=== PATIENT | male | born 1965 | race Caucasian/White ===

== ENCOUNTER 2019-12-27 11:01 | Emergency (ER) | payer BC ==
[~2019-12-27] VITALS: Ht 177.8 cm; Wt 90.0 kg
[2019-12-27] MEDS: diazePAM 5 MG TABLET PO STA (11:26)
--- NOTE | 2019-12-27 11:36 | PHYS DOC ---
Adult General Chief Complaint Chief Complaint: DIZZY/LIGHT HEADED [facility] HPI Patient is a 54 year old male who presents with dizziness, blurred vision, diaphoresis when he woke up at 3 AM this morning to get a drink. The patient states that he started having blurred vision bilaterally. He states that he went then went back to sleep and woke up at 5 AM and had similar symptoms. He states that then he woke up again after going back to sleep and had symptoms 1 more time. The patient states he took some meclizine which did help. And he states that the symptoms come when he tilts his head. Denies any medical histor y. Seen at urgent care prior to arrival and was sent to the ER for additional work-up. Denies any additional symptoms. Complete ROS were reviewed and found to be within normal limits, except as doc umented in the HPI (DOMINIC SHEPHERD APRN) Current Medications Current Medications Current Medications Medications (Trade) Dose Ordered Sig/Virgen Start Time Stop Time Status Last Admin Dose Admin Diazepam (Valium) 5 mg 1X STAT 12/27/19 11:26 12/27/19 11:40 DC 12/27/19 11:26 5 MG Meclizine HCl (Antivert) 25 mg 1X STAT 12/27/19 12:23 12/27/19 12:24 DC 12/27/19 12:33 25 MG (KELLY MARIO DO) Allergies Allergies Allergies Coded Allergies Type Severity Reaction Last Updated Verified Penicillins Allergy Intermediate 12/27/19 Yes (FABIANOKELLY E DO) Physical Exam Physical Exam Constitutional: Well developed, well nourished, no acute distress, non-toxic appearance. [] HENT: Normocephalic, atraumatic, bilateral external ears normal, oropharynx moist, no oral exudates, nose normal. [] Eyes: Patient is having nystagmus when his head is turned. Neurologic: Alert and oriented X 3, normal motor function, normal sensory function, no focal deficits noted. Patient has positive Romberg test when he is stood up and has his arms crossed in his eyes closed. Patient also has a positive tilt test. Psychologic: Affect normal, judgement normal, mood normal. [] (DOMINIC SHEPHERD APRN) Current Patient Data Vital Signs Vital Signs Date Time Temp Pulse Resp B/P (MAP) Pulse Ox O2 Delivery O2 Flow Rate FiO2 12/27/19 12:45 70 18 96 12/27/19 11:08 98.0 135/87 (103) Room Air 98.0 ([facility]) Lab Values Laboratory Tests Test 12/27/19 11:20 White Blood Count 4.0 x10^3/uL (4.0-11.0) Red Blood Count 5.18 x10^6/uL (4.30-5.70) Hemoglobin 14.6 g/dL (13.0-17.5) Hematocrit 45.1 % (39.0-53.0) Mean Corpuscular Volume 87 fL (79-100) Mean Corpuscular Hemoglobin 28 pg (25-35) Mean Corpuscular Hemoglobin Concent 32 g/dL (31-37) Red Cell Distribution Width 13.2 % (11.5-14.5) Platelet Count 209 x10^3/uL (140-400) Neutrophils (%) (Auto) 47 % (31-73) Lymphocytes (%) (Auto) 38 % (24-48) Monocytes (%) (Auto) 11 % (0-9) H Eosinophils (%) (Auto) 2 % (0-3) Basophils (%) (Auto) 1 % (0-3) Neutrophils # (Auto) 1.9 x10^3/uL (1.8-7.7) Lymphocytes # (Auto) 1.5 x10^3/uL (1.0-4.8) Monocytes # (Auto) 0.4 x10^3/uL (0.0-1.1) Eosinophils # (Auto) 0.1 x10^3/uL (0.0-0.7) Basophils # (Auto) 0.0 x10^3/uL (0.0-0.2) Sodium Level 142 mmol/L (136-145) Potassium Level 4.0 mmol/L (3.5-5.1) Chloride Level 106 mmol/L (98-107) Carbon Dioxide Level 29 mmol/L (21-32) Anion Gap 7 (6-14) Blood Urea Nitrogen 14 mg/dL (8-26) Creatinine 1.1 mg/dL (0.7-1.3) Estimated GFR (Cockcroft-Gault) 70.3 BUN/Creatinine Ratio 13 (6-20) Glucose Level 104 mg/dL (70-99) H Calcium Level 8.9 mg/dL (8.5-10.1) Total Bilirubin 0.5 mg/dL (0.2-1.0) Aspartate Amino Transferase (AST) 27 U/L (15-37) Alanine Aminotransferase (ALT) 33 U/L (16-63) Alkaline Phosphatase 65 U/L (46-116) Troponin I Quantitative < 0.017 ng/mL (0.000-0.055) Total Protein 6.8 g/dL (6.4-8.2) Albumin 4.1 g/dL (3.4-5.0) Albumin/Globulin Ratio 1.5 (1.0-1.7) Laboratory Tests 12/27/19 11:20 Laboratory Tests 12/27/19 11:20 ([facility]) Lab Values Laboratory Tests Test 12/27/19 11:20 White Blood Count 4.0 x10^3/uL (4.0-11.0) Red Blood Count 5.18 x10^6/uL (4.30-5.70) Hemoglobin 14.6 g/dL (13.0-17.5) Hematocrit 45.1 % (39.0-53.0) Mean Corpuscular Volume 87 fL (79-100) Mean Corpuscular Hemoglobin 28 pg (25-35) Mean Corpuscular Hemoglobin Concent 32 g/dL (31-37) Red Cell Distribution Width 13.2 % (11.5-14.5) Platelet Count 209 x10^3/uL (140-400) Neutrophils (%) (Auto) 47 % (31-73) Lymphocytes (%) (Auto) 38 % (24-48) Monocytes (%) (Auto) 11 % (0-9) H Eosinophils (%) (Auto) 2 % (0-3) Basophils (%) (Auto) 1 % (0-3) Neutrophils # (Auto) 1.9 x10^3/uL (1.8-7.7) Lymphocytes # (Auto) 1.5 x10^3/uL (1.0-4.8) Monocytes # (Auto) 0.4 x10^3/uL (0.0-1.1) Eosinophils # (Auto) 0.1 x10^3/uL (0.0-0.7) Basophils # (Auto) 0.0 x10^3/uL (0.0-0.2) Sodium Level 142 mmol/L (136-145) Potassium Level 4.0 mmol/L (3.5-5.1) Chloride Level 106 mmol/L (98-107) Carbon Dioxide Level 29 mmol/L (21-32) Anion Gap 7 (6-14) Blood Urea Nitrogen 14 mg/dL (8-26) Creatinine 1.1 mg/dL (0.7-1.3) Estimated GFR (Cockcroft-Gault) 70.3 BUN/Creatinine Ratio 13 (6-20) Glucose Level 104 mg/dL (70-99) H Calcium Level 8.9 mg/dL (8.5-10.1) Total Bilirubin 0.5 mg/dL (0.2-1.0) Aspartate Amino Transferase (AST) 27 U/L (15-37) Alanine Aminotransferase (ALT) 33 U/L (16-63) Alkaline Phosphatase 65 U/L (46-116) Troponin I Quantitative < 0.017 ng/mL (0.000-0.055) Total Protein 6.8 g/dL (6.4-8.2) Albumin 4.1 g/dL (3.4-5.0) Albumin/Globulin Ratio 1.5 (1.0-1.7) Laboratory Tests 12/27/19 11:20 Laboratory Tests 12/27/19 11:20 (DOMINIC SHEPHERD APRN) EKG EKG EKG interpreted by Dr. Tamayo Sinus rhythm with rate of 60.[] (DOMINIC SHEPHERD APRN) Radiology/Procedures Radiology/Procedures [][facility] [address] [place] [address] IMAGING REPORT Signed PATIENT: BRIDGETTE FALCON ACCOUNT: [id number] : 1965 LOCATION: ER AGE: 54 SEX: M EXAM STATUS: REG ER ORD. PHYSICIAN: DOMINIC SHEPHERD APRN REASON: dizziness PROCEDURE: CT HEAD WO CONTRAST CT HEAD INDICATION: Dizziness COMPARISON: None Available. Exposure: One or more of the following individualized dose reduction techniques were utilized for this examination: 1. Automated exposure control 2. Adjustment of the mA and/or kV according to patient size 3. Use of iterative reconstruction technique TECHNIQUE: 5 mm contiguous axial images were obtained from the skull base to the vertex in both bone and soft tissue algorithm. FINDINGS: No abnormal attenuation within the brain parenchyma. No evidence of acute intracranial hemorrhage. No extra-axial fluid collections. No mass effect or midline shift. Ventricular size is appropriate. Basal cisterns are patent. No fractures identified.Nolasco-white differentiation is preserved.Globes and orbits are within normal limits. Paranasal sinuses and mastoid air cells are clear. IMPRESSION: No acute intracranial findings. Electronically signed by: John Yates MD (12/27/2019 12:21 PM) [id number] DICTATED and SIGNED BY: JOHN YATES MD DATE: 12/27/19 1221 (DOMINIC SHEPHERD APRN) Course & Med Decision Making Course & Med Decision Making Pertinent Labs and Imaging studies reviewed. (See chart for details) Symptoms are likely due to vertigo. Will get a CT of the head, and will get labs and EKG to rule out other causes. During assessment incited symptoms of the vertigo by doing tilt test and Romberg test. Will give Valium to the patient to help symptoms Labs and imaging are unremarkable. Left patient follow-up with ENT and will prescribe meclizine for home. (DOMINIC SHEPHERD APRN) Dragon Disclaimer Dragon Disclaimer This electronic medical record was generated, in whole or in part, using a voice recognition dictation system. (DOMINIC SHEPHERD APRN) Attending Signature I have participated in the care of this patient and I have reviewed and agree with all pertinent clinical information above including history, exam, and recommendations. (KELLY MARIO DO) Departure Departure Impression: Primary Impression: Benign positional vertigo Disposition: HOME, SELF-CARE Condition: STABLE Referrals: NO PCP (PCP) SABINE DOHERTY MD Patient Instructions: Benign Positional Vertigo Additional Instructions: Thank you for visiting [facility]. We appreciate you trusting us with your care. If any additional problems come up don't hesitate to return to visit us. Please follow up with your primary care provider so they can plan additional care if needed and know about the problem that you had. If symptoms worsen come back to the Emergency Department. Any concerning symptoms that start such as chest pain, shortness of air, weakness or numbness on one side of the body, running high fevers or any other concerning symptoms return to the ER. Please take meclizine per label instructions help symptoms. Please follow-up with an ENT. Scripts Meclizine Hcl (MECLIZINE HCL) 25 Mg Tablet 1 TAB PO PRN TID PRN for DIZZINESS, #30 TAB Prov: DOMINIC SHEPHERD APRN 12/27/19 Problem Qualifiers Primary Impression: Benign positional vertigo Laterality: bilateral Qualified Codes: H81.13 - Benign paroxysmal vertigo, bilateral DOMINIC SHEPHERD APRN Dec 27, 2019 11:36 KELLY MARIO DO Dec 27, 2019 17:36
[2019-12-27 11:57] LABS: BASO % 1 % (0-3); EOS # 0.1 x10^3/uL (0.0-0.7); EOS % 2 % (0-3); HEMATOCRIT 45.1 % (39.0-53.0); HEMOGLOBIN 14.6 g/dL (13.0-17.5); LYMPH # 1.5 x10^3/uL (1.0-4.8); LYMPH % 38 % (24-48); MEAN CORPUSCULAR HEMOGLOBIN 28 pg (25-35); MEAN CORPUSCULAR HGB CONC 32 g/dL (31-37); MEAN CORPUSCULAR VOLUME 87 fL (79-100); MONO # 0.4 x10^3/uL (0.0-1.1); MONO % 11 % (0-9); NEUT # 1.9 x10^3/uL (1.8-7.7); NEUT % 47 % (31-73); PLATELET COUNT 209 x10^3/uL (140-400); RED BLOOD COUNT 5.18 x10^6/uL (4.30-5.70); RED CELL DISTRIBUTION WIDTH 13.2 % (11.5-14.5)
[2019-12-27 12:01] LABS: CALCIUM 8.9 mg/dL (8.5-10.1); CREATININE 1.1 mg/dL (0.7-1.3); GFR 70.3
[2019-12-27 12:06] LABS: ALBUMIN 4.1 g/dL (3.4-5.0); ALBUMIN/GLOBULIN RATIO 1.5 (1.0-1.7); TOTAL BILIRUBIN 0.5 mg/dL (0.2-1.0); TOTAL PROTEIN 6.8 g/dL (6.4-8.2)
--- NOTE | 2019-12-27 12:24 | RAD ---
CT HEAD INDICATION: Dizziness COMPARISON: None Available. Exposure: One or more of the following individualized dose reduction techniques were utilized for this examination: 1. Automated exposure control 2. Adjustment of the mA and/or kV according to patient size 3. Use of iterative reconstruction technique TECHNIQUE: 5 mm contiguous axial images were obtained from the skull base to the vertex in both bone and soft tissue algorithm. FINDINGS: No abnormal attenuation within the brain parenchyma. No evidence of acute intracranial hemorrhage. No extra-axial fluid collections. No mass effect or midline shift. Ventricular size is appropriate. Basal cisterns are patent. No fractures identified.Nolasco-white differentiation is preserved.Globes and orbits are within normal limits. Paranasal sinuses and mastoid air cells are clear. IMPRESSION: No acute intracranial findings. Electronically signed by: John Yates MD (12/27/2019 12:21 PM) [id number]
[2019-12-27] MEDS ORDERED: MECL-75 PO (12:27)
[2019-12-27] MEDS: MECLIZINE HCL 12.5 MG TABLET. PO STA (12:33)
[2019-12-27 12:45] VITALS: BP 124/80
--- NOTE | 2019-12-28 05:24 | EKG ---
[facility] [address] [place] [address] Test Date: 2019-12-27 Test Time: 11:15:30 Pat Name: BRIDGETTE FALCON Department: Room: Gender: M Sanitation Director: : 1965 Requested By: DOMINIC SHEPHERD Order Number: [id number] Reading MD: Measurements Intervals [place] Rate: 60 P: 52 IL: 154 QRS: 51 QRSD: 96 T: 54 QT: 394 QTc: 398 Interpretive Statements SINUS RHYTHM NO SPECIFIC ECG ABNORMALITIES RI6.01 No previous ECG available for comparison
== END 2019-12-27 13:00 | disposition home or self-care (01) ==
LOC: ER 11:01
DX: H81.13 Benign paroxysmal vertigo, bilateral (principal); R42 Dizziness and giddiness; H53.8 Other visual disturbances; R61 Generalized hyperhidrosis; Z88.0 Allergy status to penicillin
CPT/HCPCS: 36415; 70450; 80053; 84484; 85025; 93005; 99285; J8597

== ENCOUNTER → 2020-08-18 | Outpatient (CLI) | payer BC ==
[~2020-08-18] MED LIST: MECL-75 PO
--- NOTE | 2020-08-18 15:33 | KCIC ---
CHEST PA LATERAL Technique: PA and lateral views of the chest were obtained. Clinical History: Reason: Sternal chest pain, hx Covid in March. / Spl. Instructions: / History: Comparison: None. Findings: The heart and pulmonary vasculature appear within normal limits. Linear opacities in the lung bases are likely discoid atelectasis. The pleural margins are clear. Impression: No acute chest process is seen. Electronically signed by: Aditya Galvez III, MD (08/18/2020 3:30 PM) [facility]
== END ==
LOC: KCIC 10:32
PROVIDERS: ATTEND Family Medicine
DX: R07.89 Other chest pain (principal)
CPT/HCPCS: 71046

== ENCOUNTER → 2020-11-24 | Outpatient (CLI) | payer BC ==
--- NOTE | 2020-11-24 10:10 | CARD ---
MR#: [id number] Date of Study: 11/24/2020 Ordering Physician: GAVIN CONTRERAS, Referring Physician: GAVIN CONTRERAS, Tech: Shari Huber [facility] APPROVED REPORT EXAM: Two-dimensional and M-mode echocardiogram with Doppler and color Doppler. Other Information Quality : Good INDICATION Chest Pain 2D DIMENSIONS RVDd3.0 (2.9-3.5cm)Left Atrium(2D)3.1 (1.6-4.0cm) IVSd0.9 (0.7-1.1cm)Aortic Root(2D)2.9 (2.0-3.7cm) LVDd5.0 (3.9-5.9cm)LVOT Diameter2.2 (1.8-2.4cm) PWd0.8 (0.7-1.1cm)LVDs3.6 (2.5-4.0cm) FS (%) 28.4 %SV65.9 ml LVEF(%)54.6 (>50%) Aortic Valve AoV Peak Caesar.114.3cm/sAoV VTI21.1cm AO Peak GR.5.2mmHgLVOT Peak Caesar.109.8cm/s AO Mean GR.3mmHgAVA (VMAX)3.70cm2 QUIQEU (VTI)4.10cm2 Mitral Valve MV E Imtywnid67.0cm/sMV DECEL OHLT604ei MV A Pwwechqx70.2cm/sE/A Ratio1.2 Tricuspid Valve TR P. Kovlpxfj687fu/sRAP LCONZUYZ3xhPd TR Peak Gr.66dqSiMTHF83hbMt Pulmonary Vein S1 Zrbxbmeg99.4cm/sD2 Pjddmjac56.1cm/s LEFT VENTRICLE The left ventricle is normal size. There is normal left ventricular wall thickness. The left ventricu lar systolic function is normal. The Ejection Fraction is 55-60%. There is normal LV segmental wall m otion. The left ventricular diastolic function and filling is normal for age. RIGHT VENTRICLE The right ventricle is normal size. The right ventricular systolic function is normal. ATRIA The left atrium size is normal. The right atrium size is normal. The interatrial septum is intact wit h no evidence for an atrial septal defect or patent foramen ovale as noted on 2-D or Doppler imaging. AORTIC VALVE The aortic valve is normal in structure and function. Doppler and Color Flow revealed no significant aortic regurgitation. There is no significant aortic valvular stenosis. MITRAL VALVE The mitral valve is normal in structure and function. There is no evidence of mitral valve prolapse. There is no mitral valve stenosis. Doppler and Color Flow revealed no mitral valve regurgitation note d. TRICUSPID VALVE The tricuspid valve is normal in structure and function. Doppler and Color Flow revealed trace tricus pid regurgitation. The PA pressure was estimated at 24 mmHg. There is no tricuspid valve stenosis. PULMONIC VALVE The pulmonary valve is normal in structure and function. Doppler and Color Flow revealed trace pulmon ic valvular regurgitation. There is no pulmonic valvular stenosis. GREAT VESSELS The aortic root is normal in size. The ascending aorta is not well seen. The IVC is normal in size an d collapses >50% with inspiration. PERICARDIAL EFFUSION There is no evidence of significant pericardial effusion. Critical Notification Critical Value: No <Conclusion> The left ventricular systolic function is normal. The Ejection Fraction is 55-60%. There is normal LV segmental wall motion. Trace tricuspid regurgitation. The PA pressure was estimated at 24 mmHg. There is no evidence of significant pericardial effusion. Signed by : Mehdi Rivera, Electronically Approved : 11/24/2020 10:10:19
--- NOTE | 2020-11-24 13:37 | RAD ---
MR#: [id number] Date of Study: 11/24/2020 Ordering Physician: GAVIN CONTRERAS, Referring Physician: ROSA MARIA LOPEZ Tech: PATRICK Goff, ARRT (R) (N) APPROVED REPORT Test Type: Exercise Stress Nurse/Tech: Elizabeth Gallardo RN Test Indications: chest pain post COVID March 2021 Cardiac History: No known cardiac Medications: See Electronic Medical Record Medical History: See Electronic Medical Record Resting ECG: SR Resting Heart Rate: 70 bpm Resting Blood Pressure: 121/68mmHg Pretest Chest Pain: None Nurse/Tech Notes lungs CTA, S1S2 Consent: The procedure was explained to the patient in lay terms. Informed consent was witnessed. Chucho eout was entered into [employer]. History and Stress Test performed by MEHRDAD [place] Stress Symptoms Dyspnea POST EXERCISE Reason for Termination: Reached target heart rate Target HR: 141 Max HR: 157 bpm 111% of Maximum Predicted HR: 141 bpm Exercise duration: 10:20 min:sec, 4 Stage Exercise capacity: 13.4METs Max Blood Pressure: 147/73mmHg Blood Pressure response to exercise: Normal blood pressure response during stress. Heart Rate response to exercise: normal response Chest Pain: No. Arrhythmia: No. ST Change: No. INTERPRETATION Stress EKG Conclusion: Baseline EKG showed sinus rhythm. No ischemic changes at peak stress. No arr hythmias. Imaging Protocol IMAGE PROTOCOL: Rest Tc-99m/stress Tc-99m 1 day Rest: Stress: Viability: Radiopharm.Tc99m NlutifdtkGb04g Sestamibi Zzhp89vZh 33mCi Duration 15min. 13min. Img Date 11/24/2020 11/24/2020 Inj-Img Wuoh79qlz. 60min. Post-Injection Exercise: 1 minute Rest Admin Site:IV - Right AntecubitalAdministrator:PATRICK Goff, ARRT (R)(N) Stress Admin Site: IV - Right AntecubitalAdministrator: RT Misti (R)(N) STRESS DATA End Diast. Vol.81.0mlLVEDV index BSA41.0ml End Syst. Vol.17.0mlLVESV index BSA9.0ml Myocardial Xlok198.0gEject. Zkdzcpmt80.0% Stress Scores Regional WT3.00Summed WT10.00 Regional WM0.00Summed WM0.00 Study quality was good. Left Ventricular size was Normal at Rest and Stress. Lung uptake was . Left Ventricular ejection fraction is 76%. The rest and stress images show normal perfusion, normal contraction and thickening. LV Perf. Quant 17 Seg. SSS0.00 17 Seg. SRS0.00 17 Seg. SDS0.00 Stress Defect Extent (% LAD)0.00Rest Defect Extent (% LAD)0.00Rev. Defect Extent (% LAD)0.00 Stress Defect Extent (% LCX) 0.00Rest Defect Extent (% LCX)0.00Rev. Defect Extent (% LCX)0.00 Stress Defect Extent (% RCA)0.00Rest Defect Extent (% RCA)0.00Rev. Defect Extent (% RCA)0.00 Stress Defect Extent (% SAL)0.00Rest Defect Extent (% SAL)0.00Rev. Defect Extent (% SAL)0.00 Conclusion 1. Treadmill exercise cardioisotope stress test did not show any evidence of ischemia or infarct. 2. Normal left ventricular systolic function with ejection fraction calculated at 76%. 3. Patient had good activity tolerance. Low risk for cardiac events. Signed by : Mehdi Rivera, Electronically Approved : 11/24/2020 13:37:29
== END ==
LOC: NM 15:51
PROVIDERS: ATTEND Internal Medicine Cardiovascular Disease
DX: R07.89 Other chest pain (principal)
CPT/HCPCS: 78452; 93017; 93306; A9500

== ENCOUNTER → 2021-09-23 | Outpatient (CLI) | payer BC ==
[~2021-09-23] MED LIST changes: +BARIUM SULFATE 40% (APPLE) 148 GM PWD. PO ONE
--- NOTE | 2021-09-23 14:58 | RAD ---
EXAM: Video swallow evaluation. HISTORY: Dysphagia. TECHNIQUE: Fluoroscopic imaging was performed with a speech pathologist during the oral demonstration of barium contrast of varying consistencies. 0 fluoroscopic images were saved. The total fluoroscopy time was 0.9 minutes. COMPARISON: None. FINDINGS: There is no evidence of aspiration or penetration. IMPRESSION: No evidence of aspiration or penetration. Please refer to the separate report by the [facility] pathologist for clinical recommendations. Electronically signed by: Viji Pelaez MD (09/23/2021 2:56 PM) [id number]
== END ==
LOC: RAD 12:55
PROVIDERS: ATTEND Otolaryngology
DX: R13.10 Dysphagia, unspecified (principal)
CPT/HCPCS: 74230; 92611-GN